=== PATIENT | male | born 1995 | race American Indian/Alaskan Native ===

== ENCOUNTER 2021-05-20 05:05 | Emergency (ER) | payer SELFPAY ==
--- NOTE | 2021-05-20 05:47 | Event Note ---
ED Screening Note ED Screening Note: 25-year-old Georgian male [facility] emerge department complaint planing of spontaneous AB abdominal pain that radiates from the mid gastric area down to the penile and testicular region of unknown etiology. Reports no loss of bowel bladder no saddle paresthesia, no hemoptysis no hematemesis no hematuria no feve r, chills, sweats pain is dull and throbbing worse with palpation and eating This initial assessment/diagnostic orders/clinical plan/treatment(s) is/are subject to change based on patients health status, clinical progression and re- assessment by fellow clinical providers in the ED. Further treatment and workup at subsequent clinical providers discretion. Patient/guardian urged not to elope from the ED as their condition may be serious if not clinically assessed and managed. Initial orders include: Plan obtain urinalysis, routine laboratory findings and reevaluate for the need for any imaging
[2021-05-20 06:10] LABS: Bilirubin,Urine NEG (Negative); Blood,Urine NEG (Negative); Color,Urine Straw (Yellow); Mucus,Urine FEW /HPF; Protein,Urine <15 mg/dL mg/dL (Negative); RBC,Urine < 1.0 /HPF (0.0-6.0); Urobilinogen,Urine < 2.0 mg/dL (<2.0); WBC,Urine < 1.0 /HPF (0.0-6.0)
[2021-05-20 06:18] LABS: Basophils % (Auto) 0.4 % (0.0-1.8); Eosinophils % (Auto) 0.3 % (0.0-4.3); Hematocrit 41.5 % (35.5-45.6); Hemoglobin 13.5 gm/dl (11.8-15.2); Lymphocytes # (Auto) 1.2 K/mm3 (1.2-5.4); Lymphocytes % (Auto) 21.8 % (13.4-35.0); Mean Corpuscular HGB Conc 33 % (32-34); Mean Corpuscular Volume 79 fl (84-94); Monocytes # (Auto) 0.4 K/mm3 (0.0-0.8); Monocytes % (Auto) 7.5 % (0.0-7.3); Platelet Count 282 K/mm3 (140-440); Red Blood Count 5.24 M/mm3 (3.65-5.03); Red Cell Distribution Width 12.5 % (13.2-15.2)
[2021-05-20 07:30] LABS: Alanine Aminotransferase 38 units/L (7-56); Albumin 4.5 g/dL (3.9-5); BUN/Creatinine Ratio 16; Blood Urea Nitrogen 14 mg/dL (9-20); Calcium 9.3 mg/dL (8.4-10.2); Hemolysis Index 3
[2021-05-20] MEDS ORDERED: traMADol 50 MG TAB PO ONE (09:22)
--- NOTE | 2021-05-20 09:23 | Emergency Department Report ---
ED General Adult HPI - General Chief complaint: Urogenital-Male Stated complaint: ABDOMINAL PAIN Time Seen by Provider: 05/20/21 09:03 Source: EMS Mode of arrival: Stretcher Limitations: No Limitations - History of Present Illness Initial comments: Patient presents with abdominal pain. He states that he was at a club. He was bending over and felt a sharp pop in his abdomen. He states that this was a sharp and stabbing pain that he felt in the abdomen. It is still present. It is worse with movement. He came here for evaluation and treatment because of the pain. The pain is diffusely located. He states that it seems to be coming from the lower abdomen. He also reported a feeling of stickiness on his left side. He states that it felt as though his skin was sticking on the left although there was nothing spilled on him. He decided to come here for evaluation and treatment. There is no trauma. He has no fevers or chills per there is no cough congestion. He has had no hematemesis or coffee-ground emesis. There is no melanotic stool. There is no dysuria or hematuria. - Related Data Previous Rx's Medication Instructions Recorded Last Taken Type Ibuprofen [Motrin] 600 mg PO Q8H PRN #30 tablet 05/20/21 Unknown Rx Metaxalone [Skelaxin] 800 mg PO TID #9 tablet 05/20/21 Unknown Rx Allergies Allergy/AdvReac Type Severity Reaction Status Date / Time No Known Allergies Allergy Verified 05/20/21 05:13 ED Review of Systems ROS: Stated complaint: ABDOMINAL PAIN Other details as noted in HPI Comment: All other systems reviewed and negative Constitutional: denies: fever Eyes: denies: eye pain ENT: denies: throat pain Respiratory: denies: cough Cardiovascular: denies: chest pain Endocrine: denies: unexplained weight loss Gastrointestinal: as per HPI Genitourinary: denies: dysuria Musculoskeletal: denies: back pain Skin: denies: rash Neurological: denies: headache Hematological/Lymphatic: denies: easy bruising ED Past Medical Hx - Past Medical History Previous Medical History?: No - Surgical History Past Surgical History?: No - Family History Family history: no significant - Social History Smoking Status: Unknown if ever smoked Substance Use Type: None - Medications Home Medications: Home Medications Medication Instructions Recorded Confirmed Last Taken Type Ibuprofen [Motrin] 600 mg PO Q8H PRN #30 tablet 05/20/21 Unknown Rx Metaxalone [Skelaxin] 800 mg PO TID #9 tablet 05/20/21 Unknown Rx ED Physical Exam - General Limitations: No Limitations, Other (Pulse ox noted and normal) General appearance: alert, in no apparent distress - Head Head exam: Present: atraumatic, normocephalic, normal inspection - Eye Eye exam: Present: normal appearance, EOMI. Absent: scleral icterus - ENT ENT exam: Present: normal exam, normal orophraynx, normal external ear exam - Neck Neck exam: Present: normal inspection. Absent: meningismus - Respiratory Respiratory exam: Present: normal lung sounds bilaterally. Absent: respiratory distress - Cardiovascular Cardiovascular Exam: Present: regular rate, normal rhythm - GI/Abdominal GI/Abdominal exam: Present: soft. Absent: distended, tenderness, guarding, rebound - Extremities Exam Extremities exam: Present: normal capillary refill - Back Exam Back exam: Absent: CVA tenderness (R), CVA tenderness (L) - Neurological Exam Neurological exam: Present: alert, oriented X3, CN II-XII intact, normal gait - Psychiatric Psychiatric exam: Present: normal affect, normal mood - Skin Skin exam: Present: warm, dry ED Course Vital Signs 05/20/21 05/20/21 05:15 09:56 Temperature 98 F Pulse Rate 86 Respiratory 16 16 Rate Blood Pressure 130/90 [Left] O2 Sat by Pulse 98 Oximetry - Reevaluation(s) Reevaluation #2: 05/20/21 09:23 Labs reviewed. X-rays ordered. Reevaluation #3: 05/20/21 10:26 Radiographs are noted. Labs were reviewed. Patient was discharged. Old records reviewed. ED Medical Decision Making - Lab Data Result diagrams: 05/20/21 05:56 05/20/21 05:56 - Radiology Data Radiology results: image reviewed - Medical Decision Making Patient presents with abdominal pain of unclear etiology. This was nontraumatic in nature. He certainly does not have peritoneal finding. Given his presentation of a sharp onset of abdominal pain, there is no evidence of peritonitis. He has no evidence of free air or perforation. He does not have evidence of acute hepatitis or pancreatitis. There is no right lower quadrant tenderness to suggest appendicitis. Patient has not had any urinary symptoms. He was given analgesics and referral for outpatient evaluation and follow-up. Critical Care Time: No Critical care attestation.: If time is entered above; I have spent that time in minutes in the direct care of this critically ill patient, excluding procedure time. ED Disposition Clinical Impression: Generalized abdominal pain Disposition: HOME / SELF CARE / HOMELESS Is pt being admited?: No Condition: Stable Instructions: Pain Without a Known Cause Additional Instructions: Try ice or heat for your pain. Drink plenty water. Return for problems. Follow-up with your regular doctor. If you do not have a regular doctor, follow-up with the referral physician. Take medication as needed. Prescriptions: Ibuprofen [Motrin] 600 mg PO Q8H PRN #30 tablet PRN Reason: Pain Metaxalone [Skelaxin] 800 mg PO TID #9 tablet Referrals: JERALD BOBBY MD [Primary Care Provider] - 3-5 Days OLIVA BOJORQUEZ MD [Staff Physician] - 3-5 Days
--- NOTE | 2021-05-20 10:30 | XRay Report ---
ABDOMEN SERIES WITH ONE VIEW CHEST INDICATION / CLINICAL INFORMATION: sharp pain. COMPARISON: None available. FINDINGS: TUBES / LINES: None. BOWEL GAS PATTERN: No significant abnormality. FREE AIR / EXTRALUMINAL GAS: None seen. ADDITIONAL FINDINGS: No significant additional findings. LUNGS: Visualized lungs show no significant abnormality. IMPRESSION: 1. No significant abnormality. Signer Name: Eugene Rea MD Signed: 05/20/2021 10:25 AM Workstation Name: [id number]
[2021-05-20 11:03] VITALS: BP 125/77
== END 2021-05-20 11:03 | disposition home or self-care (01) ==
LOC: ED 05:05
DX: R10.84 Generalized abdominal pain (principal)
CPT/HCPCS: 36415; 74022; 80053; 81001; 83690; 85025; 99284

== ENCOUNTER 2021-05-20 17:27 | Emergency (ER) | payer SELFPAY ==
[2021-05-20 17:35] VITALS: BP 111/62
[2021-05-20] MEDS ORDERED: LORazepam 1 MG TAB PO ONE (19:27)
--- NOTE | 2021-05-20 19:32 | Emergency Department Report ---
ED Anxiety HPI - General Chief Complaint: Anxiety Stated Complaint: anxiety Source: patient, EMS Mode of arrival: Ambulatory - History of Present Illness Initial Comments: Patient is a 25-year-old -[place]est[place] male with a history of anxiety and not on any medications who presents to the ED with complaint of acute exacerbation of his chronic recurrent anxiety symptoms characterized by chest tightness, heart racing, and tingling sensation in his face for the last 2 hours. Patient states that he was walking on the street going to pick his medication for dental abscess that he was diagnosed with recently when he started experiencing the symptoms. Patient denies fever, chills, dizziness, syncope, chest pain, shortness of breath, abdominal pain, nausea and vomiting or headache and cough. MD Complaint: anxiety, heart racing, other (chest tightness) -: Sudden, hour(s) (2) Symptoms: chest pain (tightness), palpitations Place: outdoors Previous History of Same: Yes (chronic anxiety, not on meds) Severity: moderate Quality: constant Provoking factors: recent /illness of f Improves With: nothing Worsens With: thinking about event Associated symptoms: palpitations, anorexia. denies: chest pain, shortness of breath, diaphoresis, denies other symptoms, confusion, cough, fever/chills, headaches, rash - Related Data Home Medications: Previous Rx's Medication Instructions Recorded Last Taken Type Ibuprofen [Motrin] 600 mg PO Q8H PRN #30 tablet 05/20/21 Unknown Rx Metaxalone [Skelaxin] 800 mg PO TID #9 tablet 05/20/21 Unknown Rx hydrOXYzine PAMOATE [Vistaril] 25 mg PO Q12HR PRN #30 capsule 05/20/21 Unknown Rx Allergies/Adverse Reactions: Allergies Allergy/AdvReac Type Severity Reaction Status Date / Time No Known Allergies Allergy Verified 05/20/21 05:13 ED Review of Systems ROS: Stated complaint: anxiety Other details as noted in HPI Constitutional: denies: chills, fever Eyes: denies: eye pain, eye discharge, vision change ENT: other (facial tingling). denies: ear pain, throat pain Respiratory: denies: cough, shortness of breath, wheezing Cardiovascular: chest pain (tightness), palpitations Endocrine: no symptoms reported Gastrointestinal: denies: abdominal pain, nausea, diarrhea Genitourinary: denies: urgency, dysuria Musculoskeletal: denies: back pain, joint swelling, arthralgia Skin: denies: rash, lesions Neurological: denies: headache, weakness, paresthesias Psychiatric: anxiety. denies: depression Hematological/Lymphatic: denies: easy bleeding, easy bruising ED Past Medical Hx - Past Medical History Hx Psychiatric Treatment: Yes (Anxiety) - Social History Smoking Status: Unknown if ever smoked Substance Use Type: None - Medications Home Medications: Home Medications Medication Instructions Recorded Confirmed Last Taken Type Ibuprofen [Motrin] 600 mg PO Q8H PRN #30 tablet 05/20/21 Unknown Rx Metaxalone [Skelaxin] 800 mg PO TID #9 tablet 05/20/21 Unknown Rx hydrOXYzine PAMOATE [Vistaril] 25 mg PO Q12HR PRN #30 capsule 05/20/21 Unknown Rx ED Physical Exam - General Limitations: No Limitations General appearance: alert, in no apparent distress - Head Head exam: Present: atraumatic, normocephalic, normal inspection - Eye Eye exam: Present: normal appearance, PERRL, EOMI Pupils: Present: normal accommodation - ENT ENT exam: Present: normal exam, mucous membranes moist. Absent: normal orophraynx, mucous membranes dry, TM's normal bilaterally, normal external ear exam - Neck Neck exam: Present: normal inspection, full ROM - Respiratory Respiratory exam: Present: normal lung sounds bilaterally. Absent: respiratory distress - Cardiovascular Cardiovascular Exam: Present: normal rhythm, bradycardia, normal heart sounds. Absent: systolic murmur, diastolic murmur, rubs, gallop - GI/Abdominal GI/Abdominal exam: Present: soft, normal bowel sounds. Absent: distended, tenderness, rebound, hyperactive bowel sounds, hypoactive bowel sounds, organomegaly - Extremities Exam Extremities exam: Present: normal inspection, full ROM, normal capillary refill - Back Exam Back exam: Present: normal inspection, full ROM. Absent: CVA tenderness (L), muscle spasm, paraspinal tenderness - Neurological Exam Neurological exam: Present: alert, oriented X3, CN II-XII intact, normal gait, reflexes normal - Psychiatric Psychiatric exam: Present: normal affect, normal mood, anxious - Skin Skin exam: Present: warm, dry, intact, normal color. Absent: rash ED Course Vital Signs 05/20/21 17:34 Temperature 98.5 F Pulse Rate 57 L Respiratory 14 Rate Blood Pressure 111/62 [Left] O2 Sat by Pulse 100 Oximetry ED Medical Decision Making - EKG Data EKG shows normal: sinus rhythm Rate: normal - EKG Data Interpretation: normal EKG - Medical Decision Making This is a 25-year-old -[place] male with a history of anxiety and not on any medications who presents to the ED with complaint of acute exacerbation of his chronic recurrent anxiety symptoms characterized by chest tightness, heart racing, and tingling sensation in his face for the last 2 hours. Patient states that he was walking on the street going to pick his medication for dental abscess that he was diagnosed with recently when he started experiencing the symptoms. In the ED, patient is alert and oriented x3 and is not in any distress. Patient is hemodynamically stable. Patient heart score is 0 and is PERC negative per Wells criteria. Patient was treated in the ED with anxiety medication, and discharged home on medications. Patient was advised to follow- up with his primary care physician in 5 to 7 days for reevaluation. Patient is advised return to the ED immediately if symptoms get worse. - Differential Diagnosis Anxiety; panic attack Critical care attestation.: If time is entered above; I have spent that time in minutes in the direct care of this critically ill patient, excluding procedure time. ED Disposition Clinical Impression: Anxiety as acute reaction to exceptional stress Disposition: 01 HOME / SELF CARE / HOMELESS Is pt being admited?: No Does the pt Need Aspirin: No Condition: Stable Instructions: Generalized Anxiety Disorder, Adult Additional Instructions: Take medication with food, drink plenty of fluids and follow-up with your primary care physician in 7 to 10 days for reevaluation. Return to the ED immediately if symptoms get worse. Prescriptions: hydrOXYzine PAMOATE [Vistaril] 25 mg PO Q12HR PRN #30 capsule PRN Reason: Anxiety Referrals: [facility] [Provider Group] - 7-10 days Time of Disposition: 19:36 Print Language: DIVEHI
--- NOTE | 2021-05-22 08:40 | Electrocardiograph Report ---
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
== END 2021-05-21 01:32 | disposition home or self-care (01) ==
LOC: ED 17:27
DX: F41.9 Anxiety disorder, unspecified (principal); R00.2 Palpitations; R63.0 Anorexia
CPT/HCPCS: 93005; 99283

== ENCOUNTER 2021-05-21 18:41 | Emergency (ER) | payer SELFPAY ==
[2021-05-21] MEDS ORDERED: KETOROLAC 30 MG/1 ML INJ IM ONE (20:35)
--- NOTE | 2021-05-21 20:41 | Emergency Department Report ---
HPI - General Chief Complaint: Pain General Time Seen by Provider: 05/21/21 20:34 - HPI HPI: This is a 25-year-old -Turkish male presents to the emergency department with a complaint of some pain to the left side of his neck that radiates up into the face and left side of his head. This started about 1 hour prior to presentation. The patient says that he just started taking some amoxicillin today for a dental infection that was prescribed to him by an urgent care. He denies any vision change, slurred speech, numbness or paresthesias, focal or lateralizing weakness. He has not taken anything for symptoms prior to presentation today. ED Past Medical Hx - Past Medical History Hx Psychiatric Treatment: Yes (Anxiety) - Social History Smoking Status: Unknown if ever smoked Substance Use Type: None - Medications Home Medications: Home Medications Medication Instructions Recorded Confirmed Last Taken Type Ibuprofen [Motrin] 600 mg PO Q8H PRN #30 tablet 05/20/21 Unknown Rx Metaxalone [Skelaxin] 800 mg PO TID #9 tablet 05/20/21 Unknown Rx hydrOXYzine PAMOATE [Vistaril] 25 mg PO Q12HR PRN #30 capsule 05/20/21 Unknown Rx ED Review of Systems ROS: Stated complaint: NECK PAIN Other details as noted in HPI Comment: All other systems reviewed and negative Constitutional: denies: chills, fever Eyes: denies: eye pain, vision change ENT: dental pain. denies: throat pain Respiratory: denies: cough, shortness of breath Cardiovascular: denies: chest pain, palpitations Gastrointestinal: denies: abdominal pain, vomiting Genitourinary: denies: dysuria, discharge Musculoskeletal: other (Left-sided neck pain). denies: back pain Skin: denies: rash, lesions Neurological: headache. denies: weakness, numbness, paresthesias, confusion Physical Exam - Physical Exam Vital Signs: Vital Signs 05/21/21 18:43 Temperature 98.3 F Pulse Rate 72 Respiratory 16 Rate Blood Pressure 120/83 [Left] O2 Sat by Pulse 98 Oximetry Physical Exam: GENERAL: The patient is well-developed well-nourished. HENT: Normocephalic. Atraumatic. Patient has moist mucous membranes. Oropharynx is clear without tonsillar hypertrophy, erythema or exudates. Poor dentition. No drooling or trismus. EYES: Extraocular motions are intact. NECK: Supple. Trachea is midline. There is some reproducible tenderness to palpation to the left lateral neck, but no obvious deformity. No carotid bruit auscultated. No palpable lymphadenopathy. CHEST/LUNGS: Clear to auscultation. There is no respiratory distress noted. HEART/CARDIOVASCULAR: Regular. There is no tachycardia. There is no murmur. ABDOMEN: Abdomen is soft, nontender. Patient has normal bowel sounds. SKIN: Skin is warm and dry. NEURO: The patient is awake, alert, and oriented. The patient is cooperative. The patient has no focal neurologic deficits. Normal speech. MUSCULOSKELETAL: There is no tenderness or deformity. There is no limitation range of motion. ED Course Vital Signs 05/21/21 18:43 Temperature 98.3 F Pulse Rate 72 Respiratory 16 Rate Blood Pressure 120/83 [Left] O2 Sat by Pulse 98 Oximetry ED Medical Decision Making - Lab Data Result diagrams: 05/21/21 20:39 05/21/21 20:39 Lab Results 05/21/21 05/21/21 Range/Units 20:39 20:39 WBC 5.4 (4.5-11.0) K/mm3 RBC 5.82 H (3.65-5.03) M/mm3 Hgb 15.1 (11.8-15.2) gm/dl Hct 46.9 H (35.5-45.6) % MCV 81 L (84-94) fl MCH 26 L (28-32) pg MCHC 32 (32-34) % RDW 12.9 L (13.2-15.2) % Plt Count 313 (140-440) K/mm3 Lymph % (Auto) 31.2 (13.4-35.0) % [place] % (Auto) 7.4 H (0.0-7.3) % Eos % (Auto) 1.0 (0.0-4.3) % Baso % (Auto) 0.7 (0.0-1.8) % Lymph # (Auto) 1.7 (1.2-5.4) K/mm3 [place] # (Auto) 0.4 (0.0-0.8) K/mm3 Eos # (Auto) 0.1 (0.0-0.4) K/mm3 Baso # (Auto) 0.0 (0.0-0.1) K/mm3 Seg Neutrophils % 59.7 (40.0-70.0) % Seg Neutrophils # 3.3 (1.8-7.7) K/mm3 Sodium 139 (137-145) mmol/L Potassium 3.8 (3.6-5.0) mmol/L Chloride 102.6 (98-107) mmol/L Carbon Dioxide 23 (22-30) mmol/L Anion Gap 17 mmol/L BUN 16 (9-20) mg/dL Creatinine 1.0 (0.8-1.3) mg/dL Estimated GFR > 60 ml/min BUN/Creatinine Ratio 16 % Glucose 115 H (75-100) mg/dL Calcium 9.8 (8.4-10.2) mg/dL - Medical Decision Making This patient came in saying that he was having sharp left neck pain with radiation towards the left side of his face and head after taking his first dose of amoxicillin earlier in the evening. On examination there is no obvious deformity seen to the left side of the neck. He does not have any focal, motor or sensory deficits and his cranial nerves are intact. No palpable lymphadenopathy. No drooling or trismus. No carotid bruits auscultated. Labs were unremarkable occluding CBC and metabolic panel. Vital signs reassuring including being afebrile. It is possible that he could have had some type of reaction to the amoxicillin. He could have some type of neuropathic pain along the neck, face, head. But he does not appear to have any life or thin threatening emergency or any reason for a medical admission at this time. We discussed discontinuing the amoxicillin and following up with primary care and dentist regarding an antibiotic alternative, if necessary. He will return to the emergency department with any worsening of his symptoms, difficulty swallowing, difficulty breathing, swelling of the neck, any new neurological deficits, or with any acute distress. Critical Care Time: No Critical care attestation.: If time is entered above; I have spent that time in minutes in the direct care of this critically ill patient, excluding procedure time. ED Disposition Clinical Impression: Neck pain on left side, Facial pain, Pain, dental Disposition: 01 HOME / SELF CARE / HOMELESS Is pt being admited?: No Condition: Stable Instructions: General Headache Without Cause, Acute Pain, Adult Additional Instructions: Please follow-up with your primary care physician and dentist. As it is possible that you had a reaction to the amoxicillin, I would stop/discontinue the amoxicillin and contact your PCP or dentist for an alternative antibiotic. Return to the emergency department with any worsening of your symptoms, new or concerning symptoms not addressed during this current emergency department visit, or with any acute distress. Referrals: PRIMARY CARE, [Primary Care Provider] - 2-3 Days Time of Disposition: 21:55
[2021-05-21 20:52] LABS: Basophils % (Auto) 0.7 % (0.0-1.8); Eosinophils # (Auto) 0.1 K/mm3 (0.0-0.4); Hematocrit 46.9 % (35.5-45.6); Hemoglobin 15.1 gm/dl (11.8-15.2); Lymphocytes # (Auto) 1.7 K/mm3 (1.2-5.4); Lymphocytes % (Auto) 31.2 % (13.4-35.0); Mean Corpuscular HGB Conc 32 % (32-34); Mean Corpuscular Volume 81 fl (84-94); Monocytes # (Auto) 0.4 K/mm3 (0.0-0.8); Monocytes % (Auto) 7.4 % (0.0-7.3); Platelet Count 313 K/mm3 (140-440); Red Blood Count 5.82 M/mm3 (3.65-5.03); Red Cell Distribution Width 12.9 % (13.2-15.2)
[2021-05-21 21:10] LABS: BUN/Creatinine Ratio 16; Blood Urea Nitrogen 16 mg/dL (9-20); Calcium 9.8 mg/dL (8.4-10.2); Hemolysis Index 13
[2021-05-21 22:20] VITALS: BP 123/79
== END 2021-05-21 22:13 | disposition home or self-care (01) ==
LOC: ED 18:41
DX: M54.2 Cervicalgia (principal); G50.1 Atypical facial pain; K08.89 Other specified disorders of teeth and supporting structures; Z86.59 Personal history of other mental and behavioral disorders
CPT/HCPCS: 36415; 80048; 85025; 96372; 99283; J1885

== ENCOUNTER 2021-05-26 14:14 | Emergency (ER) | payer SELFPAY ==
[2021-05-26 14:20] VITALS: BP 115/75
== END 2021-05-26 14:30 | disposition left against medical advice (07) ==
LOC: ED 14:14
DX: Z00.00 Encounter for general adult medical examination without abnormal findings (principal); Z53.21 Procedure and treatment not carried out due to patient leaving prior to being seen by health care provider

== ENCOUNTER 2021-05-26 17:47 | Emergency (ER) | payer SELFPAY ==
[2021-05-26 17:52] VITALS: BP 112/64
--- NOTE | 2021-05-26 19:08 | Emergency Department Report ---
HPI - General Chief Complaint: Dizziness Time Seen by Provider: 05/26/21 18:37 - HPI HPI: 25-year-old -[place] male presents to the emergency department with complaint of some dizziness, generalized weakness, asymmetric temperature sensations that have been going on since this morning. The patient starts off by telling me that he feels like there is a pulling sensation in the right side of his head. He also says that the left side of his face, as well as the left side of his body and extremities, feels like it is heating up and is at a dif ferent temperature than the right side of his body and face. When EMS came to get him from home the patient says he felt as if he was slightly unsteady. He denies any vision change, slurred speech, focal or lateralizing weakness, chest pain, shortness of breath, fever, neck pain. He has not taken anything for symptoms prior to presentation. No past medical history. He denies any tobacco or illicit drug use. ED Past Medical Hx - Past Medical History Hx Psychiatric Treatment: Yes (Anxiety) - Social History Smoking Status: Unknown if ever smoked Substance Use Type: None - Medications Home Medications: Home Medications Medication Instructions Recorded Confirmed Last Taken Type Ibuprofen [Motrin] 600 mg PO Q8H PRN #30 tablet 05/20/21 Unknown Rx Metaxalone [Skelaxin] 800 mg PO TID #9 tablet 05/20/21 Unknown Rx hydrOXYzine PAMOATE [Vistaril] 25 mg PO Q12HR PRN #30 capsule 05/20/21 Unknown Rx ED Review of Systems ROS: Stated complaint: DIZZINESS Other details as noted in HPI Comment: All other systems reviewed and negative Constitutional: weakness. denies: chills, fever Eyes: denies: eye pain, vision change ENT: denies: ear pain, throat pain Respiratory: denies: cough, shortness of breath Cardiovascular: denies: chest pain, palpitations Gastrointestinal: denies: abdominal pain, vomiting Genitourinary: denies: dysuria, discharge Musculoskeletal: denies: back pain, arthralgia Skin: denies: rash, lesions Neurological: headache, other (dizziness). denies: numbness Physical Exam - Physical Exam Vital Signs: Vital Signs 05/26/21 17:49 Temperature 98.9 F Pulse Rate 82 Respiratory 16 Rate Blood Pressure 112/64 [Right] O2 Sat by Pulse 98 Oximetry Physical Exam: GENERAL: The patient is well-developed well-nourished. HENT: Normocephalic. Atraumatic. Patient has moist mucous membranes. EYES: Extraocular motions are intact. No nystagmus. NECK: Supple. Trachea is midline. CHEST/LUNGS: Clear to auscultation. There is no respiratory distress noted. HEART/CARDIOVASCULAR: Regular. There is no tachycardia. There is no murmur. ABDOMEN: Abdomen is soft, nontender. Patient has normal bowel sounds. SKIN: Skin is warm and dry. NEURO: The patient is awake, alert, and oriented. The patient is cooperative. The patient has no focal neurologic deficits. Normal speech. Cranial nerves II through XII grossly intact. No facial asymmetry. No pronator drift or dysmetria. MUSCULOSKELETAL: There is no tenderness or deformity. There is no limitation range of motion. ED Course Vital Signs 05/26/21 17:49 Temperature 98.9 F Pulse Rate 82 Respiratory 16 Rate Blood Pressure 112/64 [Right] O2 Sat by Pulse 98 Oximetry ED Medical Decision Making - Lab Data Result diagrams: 05/26/21 19:08 05/26/21 19:08 Lab Results 05/26/21 05/26/21 05/26/21 Range/Units 19:08 19:08 19:08 WBC 3.9 L (4.5-11.0) K/mm3 RBC 5.48 H (3.65-5.03) M/mm3 Hgb 14.6 (11.8-15.2) gm/dl Hct 43.6 (35.5-45.6) % MCV 80 L (84-94) fl MCH 27 L (28-32) pg MCHC 34 (32-34) % RDW 12.4 L (13.2-15.2) % Plt Count 308 (140-440) K/mm3 Lymph % (Auto) 35.7 H (13.4-35.0) % [place] % (Auto) 8.4 H (0.0-7.3) % Eos % (Auto) 0.7 (0.0-4.3) % Baso % (Auto) 0.9 (0.0-1.8) % Lymph # (Auto) 1.4 (1.2-5.4) K/mm3 [place] # (Auto) 0.3 (0.0-0.8) K/mm3 Eos # (Auto) 0.0 (0.0-0.4) K/mm3 Baso # (Auto) 0.0 (0.0-0.1) K/mm3 Seg Neutrophils % 54.3 (40.0-70.0) % Seg Neutrophils # 2.1 (1.8-7.7) K/mm3 Sodium 139 (137-145) mmol/L Potassium 4.0 (3.6-5.0) mmol/L Chloride 103.1 (98-107) mmol/L Carbon Dioxide 24 (22-30) mmol/L Anion Gap 16 mmol/L BUN 18 (9-20) mg/dL Creatinine 1.0 (0.8-1.3) mg/dL Estimated GFR > 60 ml/min BUN/Creatinine Ratio 18 % Glucose 88 (75-100) mg/dL Calcium 9.4 (8.4-10.2) mg/dL Total Bilirubin 0.30 (0.1-1.2) mg/dL AST 20 (5-40) units/L ALT 23 (7-56) units/L Alkaline Phosphatase 66 (35-129) units/L Total Protein 7.8 (6.3-8.2) g/dL Albumin 4.3 (3.9-5) g/dL Albumin/Globulin Ratio 1.2 % TSH 0.446 (0.270-4.200) mlU/mL - EKG Data -: EKG Interpreted by [place] EKG shows normal: sinus rhythm (PACs), axis, intervals, QRS complexes, ST-T waves Rate: normal - EKG Data When compared to previous EKG there are: previous EKG unavailable Interpretation: normal EKG, unchanged when compared t (05/10/21) - Radiology Data Radiology results: report reviewed CT BRAIN: 05/26/2021 INDICATION / CLINICAL INFORMATION: dizziness, weakness. COMPARISON: None available. FINDINGS: BRAIN/INTRACRANIAL STRUCTURES: Unenhanced CT images of the brain demonstrate no evidence of acute abnormality. Ventricles and sulci are normal in size and shape. There is no evidence of acute ischemic injury, hemorrhage, or mass. There are no abnormal extra- axial fluid collections. EXTRACRANIAL STRUCTURES: Unremarkable. IMPRESSION: No acute abnormality. - Medical Decision Making This patient presents to the emergency department with a complaint of a "pulling sensation" to the right side of his head, subjective change in temperature or sensation to the left side of his body, and some nonspecific dizziness. On examination he does not have any focal, motor or sensory deficits and his cranial nerves are intact. CT of the head without contrast does not show any hemorrhage, large vessel occlusion, or any other acute process. EKG does not show any morphology consistent with ST elevation myocardial infarction or any arrhythmia. Labs have been unremarkable including CBC, metabolic panel and normal thyroid function. Vital signs reassuring throughout his ED course including being afebrile. The patient was seen ambulatory in the emergency department but appears and feels stable. For all these reasons he appears safe for discharge home at this time. He has been given outpatient referral for primary care and will return to the ER with any worsening of his symptoms or with any acute distress. Critical Care Time: No Critical care attestation.: If time is entered above; I have spent that time in minutes in the direct care of this critically ill patient, excluding procedure time. ED Disposition Clinical Impression: Dizziness, Alterations of sensations Disposition: 01 HOME / SELF CARE / HOMELESS Is pt being admited?: No Condition: Stable Instructions: Dizziness Additional Instructions: Please follow-up with a primary care physician in the next few days. I have given you a referral for a local primary care physician, Dr. Lawson, and a primary care clinic, [facility]. Return to the emergency department with any worsening of your symptoms, new or concerning symptoms not addressed during this current emergency department visit, or with any acute distress. Referrals: OLIVA LAWSON MD [Staff Physician] - 3-5 Days [facility] [Provider Group] - 3-5 Days Forms: Work/School Release Form(ED) Time of Disposition: 21:17
[2021-05-26 19:22] LABS: Basophils % (Auto) 0.9 % (0.0-1.8); Eosinophils % (Auto) 0.7 % (0.0-4.3); Hematocrit 43.6 % (35.5-45.6); Hemoglobin 14.6 gm/dl (11.8-15.2); Lymphocytes # (Auto) 1.4 K/mm3 (1.2-5.4); Lymphocytes % (Auto) 35.7 % (13.4-35.0); Mean Corpuscular HGB Conc 34 % (32-34); Mean Corpuscular Volume 80 fl (84-94); Monocytes # (Auto) 0.3 K/mm3 (0.0-0.8); Monocytes % (Auto) 8.4 % (0.0-7.3); Platelet Count 308 K/mm3 (140-440); Red Blood Count 5.48 M/mm3 (3.65-5.03); Red Cell Distribution Width 12.4 % (13.2-15.2)
[2021-05-26 19:45] LABS: Alanine Aminotransferase 23 units/L (7-56); Albumin 4.3 g/dL (3.9-5); BUN/Creatinine Ratio 18; Blood Urea Nitrogen 18 mg/dL (9-20); Calcium 9.4 mg/dL (8.4-10.2); Hemolysis Index 8
--- NOTE | 2021-05-26 19:57 | Cat Scan Report ---
CT BRAIN: 05/26/2021 INDICATION / CLINICAL INFORMATION: dizziness, weakness. COMPARISON: None available. FINDINGS: BRAIN/INTRACRANIAL STRUCTURES: Unenhanced CT images of the brain demonstrate no evidence of acute abn ormality. Ventricles and sulci are normal in size and shape. There is no evidence of acute ischemic injury, hemorrhage, or mass. There are no abnormal extra-axial fluid collections. EXTRACRANIAL STRUCTURES: Unremarkable. IMPRESSION: No acute abnormality. All CT scans at this location are performed using dose reduction to ALARA by means of automated expos ure control. Signer Name: Higinio Wilkins MD Signed: 05/26/2021 7:53 PM Workstation Name: [id number]
--- NOTE | 2021-05-27 08:58 | Electrocardiograph Report ---
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
== END 2021-05-26 21:24 | disposition home or self-care (01) ==
LOC: ED 17:47
DX: R42 Dizziness and giddiness (principal); R53.1 Weakness; R20.9 Unspecified disturbances of skin sensation; F41.9 Anxiety disorder, unspecified
CPT/HCPCS: 36415; 70450; 80053; 84443; 85025; 93005; 99284

== ENCOUNTER 2021-08-13 18:18 | Emergency (ER) | payer SELFPAY ==
--- NOTE | 2021-08-13 23:37 | Emergency Department Report ---
HPI - General Chief Complaint: Dyspnea/Respdistress Time Seen by Provider: 08/13/21 23:19 - HPI HPI: MSE 6 Patient is a 26-year-old male present with a chief complaint of tinnitus and dizziness. The patient states he awakened this morning with ringing in both ears even really dizzy his shortness of breath. Patient states those symptoms are resolved with exception of slight shortness of breath. Patient denies history of fever or recent flights/long car trips. Patient denies aspirin use. Patient states for 1 day the pain in his left upper back and had a funny feeling in his right lower extremity. ED Past Medical Hx - Past Medical History Previous Medical History?: Yes Hx Psychiatric Treatment: Yes (Anxiety) - Surgical History Past Surgical History?: Yes - Family History Family history: no significant - Social History Smoking Status: Never Smoker Substance Use Type: None (Denies illicit drug use) - Medications Home Medications: Home Medications Medication Instructions Recorded Confirmed Last Taken Type Ibuprofen [Motrin] 600 mg PO Q8H PRN #30 tablet 05/20/21 Unknown Rx Metaxalone [Skelaxin] 800 mg PO TID #9 tablet 05/20/21 Unknown Rx hydrOXYzine PAMOATE [Vistaril] 25 mg PO Q12HR PRN #30 capsule 05/20/21 Unknown Rx Albuterol Mdi (or & Nicu Only) 2 puff IH QID PRN #8.5 gram 08/14/21 Unknown Rx [ProAir HFA Inhaler] Meclizine [Antivert] 25 mg PO TID PRN #20 08/14/21 Unknown Rx ED Review of Systems ROS: Stated complaint: SOB,EAR RINGING Other details as noted in HPI Constitutional: denies: fever Eyes: denies: eye pain ENT: other (Tinnitus) Respiratory: shortness of breath Cardiovascular: denies: chest pain Endocrine: no symptoms reported Gastrointestinal: denies: abdominal pain Genitourinary: denies: dysuria Musculoskeletal: back pain Neurological: other (Dizziness) Physical Exam - Physical Exam Vital Signs: Vital Signs 08/13/21 18:24 Temperature 98.0 F Pulse Rate 60 Respiratory 18 Rate Blood Pressure 106/60 O2 Sat by Pulse 99 Oximetry Physical Exam: GENERAL: The patient is well-developed well-nourished male sitting in chair not appearing to be in acute distress. [] HEENT: Normocephalic. Atraumatic. Extraocular motions are intact. Patient has moist mucous membranes. No nystagmus NECK: Supple. Trachea midline CHEST/LUNGS: Clear to auscultation. There is no respiratory distress noted. HEART/CARDIOVASCULAR: Regular. There is no tachycardia. There is no gallop rub or murmur. ABDOMEN: Abdomen is soft, nontender. Patient has normal bowel sounds. There is no abdominal distention. SKIN: There is no rash. There is no edema. There is no diaphoresis. NEURO: The patient is awake, alert, and oriented. The patient is cooperative. The patient has no focal neurologic deficits. The patient has normal speech. Cranial nerves II through XII grossly intact MUSCULOSKELETAL: There is no evidence of acute injury. ED Course Vital Signs 08/13/21 18:24 Temperature 98.0 F Pulse Rate 60 Respiratory 18 Rate Blood Pressure 106/60 O2 Sat by Pulse 99 Oximetry ED Medical Decision Making - Lab Data Result diagrams: 08/14/21 00:04 08/14/21 00:04 Laboratory Tests 08/14/21 08/14/21 08/14/21 00:04 00:04 00:04 WBC 3.5 L RBC 5.54 H Hgb 14.2 Hct 44.7 MCV 81 L MCH 26 L MCHC 32 RDW 14.0 Plt Count 325 Lymph % (Auto) 45.3 H [place] % (Auto) 10.9 H Eos % (Auto) 1.6 Baso % (Auto) 0.9 Lymph # (Auto) 1.6 [place] # (Auto) 0.4 Eos # (Auto) 0.1 Baso # (Auto) 0.0 Seg Neutrophils % 41.3 Seg Neutrophils # 1.5 L D-Dimer < 135.0 Sodium 142 Potassium 4.3 Chloride 105.9 Carbon Dioxide 24 Anion Gap 16 BUN 14 Creatinine 0.8 Estimated GFR > 60 BUN/Creatinine Ratio 18 Glucose 93 Calcium 9.0 Total Creatine Kinase 564 H CK-MB (CK-2) 5.7 H CK-MB (CK-2) Rel Index 1.0 Troponin T < 0.010 NT-Pro-B Natriuret Pep 14.58 TSH Free T4 Salicylates 08/14/21 08/14/21 00:04 00:04 WBC RBC Hgb Hct MCV MCH MCHC RDW Plt Count Lymph % (Auto) [place] % (Auto) Eos % (Auto) Baso % (Auto) Lymph # (Auto) [place] # (Auto) Eos # (Auto) Baso # (Auto) Seg Neutrophils % Seg Neutrophils # D-Dimer Sodium Potassium Chloride Carbon Dioxide Anion Gap BUN Creatinine Estimated GFR BUN/Creatinine Ratio Glucose Calcium Total Creatine Kinase CK-MB (CK-2) CK-MB (CK-2) Rel Index Troponin T NT-Pro-B Natriuret Pep TSH 0.707 Free T4 1.02 Salicylates < 0.3 L - EKG Data -: EKG Interpreted by Me EKG shows normal: sinus rhythm Rate: bradycardia (49 bpm) - EKG Data When compared to previous EKG there are: previous EKG unavailable Interpretation: other (No ischemic changes seen) - Radiology Data Radiology results: report reviewed (CT head), image reviewed (CT head, chest x- ray) interpreted by me: Chest x-ray-no definite focal infiltrates, [place] [address] Cat Scan Report Signed Patient: CAITLIN BARONE MR#: [id number] : 1995 Acct:[id number] Age/Sex: 26 / M ADM Date: 08/13/21 Loc: ED Attending Dr: Ordering Physician: MARCOS ROMEO MD Date of Service: 08/13/21 Procedure(s): CT head/brain wo con Accession Number(s): [id number] cc: MARCOS ROMEO MD CT HEAD WITHOUT CONTRAST INDICATION / CLINICAL INFORMATION: Tinnitus, dizziness. TECHNIQUE: CT of the head was performed without administration of intravenous co ntrast. All CT scans at this location are performed using CT dose reduction for ALARA by means of automated exposure control. COMPARISON: None available. FINDINGS: CEREBRAL PARENCHYMA: No significant abnormality. No acute territorial infarct. HEMORRHAGE: None. EXTRA-AXIAL SPACES: Normal in size and morphology for the patient's age. VENTRICULAR SYSTEM: Normal in size and morphology for the patient's age. MIDLINE SHIFT / HERNIATION: None. CEREBELLUM / BRAINSTEM: No significant abnormality. ORBITS: Normal as visualized. SOFT TISSUES: No significant abnormality. SKULL: No significant abnormality. PARANASAL SINUSES / MASTOID AIR CELLS: Normal as visualized. ADDITIONAL FINDINGS: No specific abnorm ality of the bilateral internal auditory canals or middle ear cavities. Vertebral basilar confluence appears within normal limits for noncontrast study. IMPRESSION: 1. No acute intracranial abnormality. Signer Name: Musa Kraft II, MD Signed: 08/13/2021 11:57 PM Workstation Name: [id number] Transcribed By: POONAM Dictated By: MUSA KRAFT II, MD Electronically Authenticated By: MUSA KRAFT II, MD Signed Date/Time: 08/13/212356 DD/ 55 TD/TT: Print Cancel - Differential Diagnosis Anxiety, PE, salicylate toxicity, Critical care attestation.: If time is entered above; I have spent that time in minutes in the direct care of this critically ill patient, excluding procedure time. ED Disposition Clinical Impression: Dizziness Disposition: 01 HOME / SELF CARE / HOMELESS Is pt being admited?: No Does the pt Need Aspirin: No Condition: Stable Instructions: Dizziness, [id number] Additional Instructions: Return to the emergency department should you develop worsening symptoms, inability to tolerate food or liquids, high fever or any other concerns Prescriptions: Meclizine [Antivert] 25 mg PO TID PRN #20 PRN Reason: Vertigo Albuterol Mdi (or & Nicu Only) [ProAir HFA Inhaler] 2 puff IH QID PRN #8.5 gram PRN Reason: Shortness Of Breath Referrals: NILA SILVERMAN MD [Staff Physician] - 3-5 Days JÚNIOR BENTLEY MD [Staff Physician] - 3-5 Days Time of Disposition: 03:59
--- NOTE | 2021-08-14 00:02 | Cat Scan Report ---
CT HEAD WITHOUT CONTRAST INDICATION / CLINICAL INFORMATION: Tinnitus, dizziness. TECHNIQUE: CT of the head was performed without administration of intravenous contrast. All CT scans at this location are performed using CT dose reduction for ALARA by means of automated exposure contr ol. COMPARISON: None available. FINDINGS: CEREBRAL PARENCHYMA: No significant abnormality. No acute territorial infarct. HEMORRHAGE: None. EXTRA-AXIAL SPACES: Normal in size and morphology for the patient's age. VENTRICULAR SYSTEM: Normal in size and morphology for the patient's age. MIDLINE SHIFT / HERNIATION: None. CEREBELLUM / BRAINSTEM: No significant abnormality. ORBITS: Normal as visualized. SOFT TISSUES: No significant abnormality. SKULL: No significant abnormality. PARANASAL SINUSES / MASTOID AIR CELLS: Normal as visualized. ADDITIONAL FINDINGS: No specific abnormality of the bilateral internal auditory canals or middle ear cavities. Vertebral basilar confluence appears within normal limits for noncontrast study. IMPRESSION: 1. No acute intracranial abnormality. Signer Name: Aiden Neal II, MD Signed: 08/13/2021 11:57 PM Workstation Name: [id number]
[2021-08-14 00:57] LABS: Basophils % (Auto) 0.9 % (0.0-1.8); Eosinophils # (Auto) 0.1 K/mm3 (0.0-0.4); Eosinophils % (Auto) 1.6 % (0.0-4.3); Hematocrit 44.7 % (35.5-45.6); Hemoglobin 14.2 gm/dl (11.8-15.2); Lymphocytes # (Auto) 1.6 K/mm3 (1.2-5.4); Lymphocytes % (Auto) 45.3 % (13.4-35.0); Mean Corpuscular HGB Conc 32 % (32-34); Mean Corpuscular Volume 81 fl (84-94); Monocytes # (Auto) 0.4 K/mm3 (0.0-0.8); Monocytes % (Auto) 10.9 % (0.0-7.3); Platelet Count 325 K/mm3 (140-440); Red Blood Count 5.54 M/mm3 (3.65-5.03)
[2021-08-14 01:01] LABS: Creatine Kinase MB 5.7 ng/mL (0.0-4.0)
[2021-08-14 01:03] LABS: BUN/Creatinine Ratio 18; Blood Urea Nitrogen 14 mg/dL (9-20); Hemolysis Index 5
[2021-08-14 01:12] LABS: Free T4 (Free Thyroxine) 1.02 ng/dL (0.76-1.46)
--- NOTE | 2021-08-14 04:12 | XRay Report ---
CHEST 2 VIEWS INDICATION / CLINICAL INFORMATION: Shortness of breath. COMPARISON: Chest x-ray 05/20/2021 FINDINGS: SUPPORT DEVICES: None. HEART / MEDIASTINUM: No significant abnormality. LUNGS / PLEURA: No significant pulmonary or pleural abnormality. No pneumothorax. ADDITIONAL FINDINGS: No significant additional findings. IMPRESSION: 1. No active cardiopulmonary disease. Signer Name: Aiden Neal II, MD Signed: 08/14/2021 4:08 AM Workstation Name: [id number]
[2021-08-14 04:13] VITALS: BP 117/76
--- NOTE | 2021-08-14 10:01 | Electrocardiograph Report ---
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
== END 2021-08-14 04:18 | disposition home or self-care (01) ==
LOC: ED 18:18
DX: R42 Dizziness and giddiness (principal)
CPT/HCPCS: 36415; 70450; 71046; 80048; 80320; 82550; 82553; 83880; 84439; 84443; 84484; 85025; 85379; 93005; 93010; 99284; G0480

== ENCOUNTER 2021-10-13 04:51 | Emergency (ER) | payer SELFPAY ==
[2021-10-13] MEDS ORDERED: ACETAMINOPHEN 500 MG TAB PO ONE (05:26)
[2021-10-13] MEDS ORDERED: ONDANSETRON 4 MG ODT TAB PO ONE (05:26)
--- NOTE | 2021-10-13 05:26 | Emergency Department Report ---
ED General Adult HPI - General Stated complaint: LT SIDE OF FACE LOCKED UP PUI?: No - History of Present Illness Initial comments: Patient is a 26-year-old -[place] male with a history of anxiety presents to the ED with complaint of acute onset persistent left maxillary sinus pain with nausea and blood in the saliva for the last 2 hours. 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 Patient stated that the pain was sharp and constant and subsequently he started tasting blood in his throat and started having nausea. Patient states that the pain is since improved but is still persistent however the patient denies traumatic injury, headache, dizziness, syncope, nasal and sinus congestion, change in vision, neck pain, sore throat, ear pain, fever and chills or nosebleed MD Complaint: Let maxillary sinus pain; nausea -: Sudden, hour(s) (2) Location: face, mouth Radiation: non-radiation Severity scale (0 -10): 4 Quality: aching, sharp Consistency: constant Improves with: none Worsens with: none Associated Symptoms: denies other symptoms. denies: confusion, chest pain, cough, diaphoresis, fever/chills, headaches, loss of appetite, malaise, nausea/vomiting, rash, seizure, shortness of breath, syncope, weakness Treatments Prior to Arrival: none - Related Data Previous Rx's Medication Instructions Recorded Last Taken Type Ibuprofen [Motrin] 600 mg PO Q8H PRN #30 tablet 05/20/21 Unknown Rx Metaxalone [Skelaxin] 800 mg PO TID #9 tablet 05/20/21 Unknown Rx hydrOXYzine PAMOATE [Vistaril] 25 mg PO Q12HR PRN #30 capsule 05/20/21 Unknown Rx Albuterol Mdi (or & Nicu Only) 2 puff IH QID PRN #8.5 gram 08/14/21 Unknown Rx [ProAir HFA Inhaler] Meclizine [Antivert] 25 mg PO TID PRN #20 08/14/21 Unknown Rx Amoxicillin [Trimox CAP] 500 mg PO Q8H #30 capsule 10/13/21 Unknown Rx Ibuprofen [Motrin] 600 mg PO Q8H PRN #24 tablet 10/13/21 Unknown Rx Ondansetron [Zofran Odt] 4 mg PO Q8HR PRN #15 tab.rapdis 10/13/21 Unknown Rx Allergies Allergy/AdvReac Type Severity Reaction Status Date / Time No Known Allergies Allergy Verified 05/26/21 14:20 ED Review of Systems ROS: Stated complaint: LT SIDE OF FACE LOCKED UP Other details as noted in HPI Constitutional: denies: chills, fever Eyes: denies: eye pain, eye discharge, vision change ENT: other (left maxillary sinus pain). denies: ear pain, throat pain Respiratory: denies: cough, shortness of breath, wheezing Cardiovascular: denies: chest pain, palpitations Endocrine: no symptoms reported Gastrointestinal: denies: abdominal pain, nausea, diarrhea Genitourinary: denies: urgency, dysuria Musculoskeletal: denies: back pain, joint swelling, arthralgia Skin: denies: rash, lesions Neurological: denies: headache, weakness, paresthesias Psychiatric: denies: anxiety, depression Hematological/Lymphatic: denies: easy bleeding, easy bruising ED Past Medical Hx - Past Medical History Hx Psychiatric Treatment: Yes (Anxiety) - Social History Smoking Status: Never Smoker Substance Use Type: None (Denies illicit drug use) - Medications Home Medications: Home Medications Medication Instructions Recorded Confirmed Last Taken Type Ibuprofen [Motrin] 600 mg PO Q8H PRN #30 tablet 05/20/21 Unknown Rx Metaxalone [Skelaxin] 800 mg PO TID #9 tablet 05/20/21 Unknown Rx hydrOXYzine PAMOATE [Vistaril] 25 mg PO Q12HR PRN #30 capsule 05/20/21 Unknown Rx Albuterol Mdi (or & Nicu Only) 2 puff IH QID PRN #8.5 gram 08/14/21 Unknown Rx [ProAir HFA Inhaler] Meclizine [Antivert] 25 mg PO TID PRN #20 08/14/21 Unknown Rx Amoxicillin [Trimox CAP] 500 mg PO Q8H #30 capsule 10/13/21 Unknown Rx Ibuprofen [Motrin] 600 mg PO Q8H PRN #24 tablet 10/13/21 Unknown Rx Ondansetron [Zofran Odt] 4 mg PO Q8HR PRN #15 tab.rapdis 10/13/21 Unknown Rx ED Physical Exam - General Limitations: No Limitations General appearance: alert, in no apparent distress - Head Head exam: Present: atraumatic, normocephalic, normal inspection - Eye Eye exam: Present: normal appearance, PERRL, EOMI Pupils: Present: normal accommodation - ENT ENT exam: Present: normal orophraynx, mucous membranes moist, TM's normal bilaterally, normal external ear exam, other (Palpable left maxillary tenderness) - Neck Neck exam: Present: normal inspection, full ROM. Absent: tenderness - Respiratory Respiratory exam: Present: normal lung sounds bilaterally. Absent: respiratory distress, wheezes, rales, rhonchi, chest wall tenderness, accessory muscle use, decreased breath sounds, prolonged expiratory - Cardiovascular Cardiovascular Exam: Present: regular rate, normal rhythm, normal heart sounds. Absent: systolic murmur, diastolic murmur, rubs, gallop - GI/Abdominal GI/Abdominal exam: Present: soft, normal bowel sounds. Absent: tenderness, guarding, rebound, hyperactive bowel sounds, hypoactive bowel sounds, mass - Extremities Exam Extremities exam: Present: normal inspection, full ROM, normal capillary refill. Absent: tenderness - Back Exam Back exam: Present: normal inspection, full ROM. Absent: tenderness, CVA tenderness (R), CVA tenderness (L), muscle spasm, paraspinal tenderness, vertebral tenderness - Neurological Exam Neurological exam: Present: alert, oriented X3, CN II-XII intact, normal gait, reflexes normal - Psychiatric Psychiatric exam: Present: normal affect, normal mood, anxious - Skin Skin exam: Present: warm, dry, intact, normal color. Absent: rash ED Course Vital Signs 10/13/21 05:19 Temperature 98.4 F Pulse Rate 64 Respiratory 12 Rate Blood Pressure 117/82 [Right] O2 Sat by Pulse 100 Oximetry ED Medical Decision Making - Medical Decision Making This is a 26-year-old -[place] male with a history of anxiety presents to the ED with complaint of acute onset persistent left maxillary sinus pain with nausea and blood in the saliva for the last 2 hours. 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 Patient stated that the pain was sharp and constant and subsequently he started tasting blood in his throat and started having nausea. Patient states that the pain is since improved but is still persistent. In the ED, patient is alert and oriented x3 and is not in any distress. Patient is hemodynamically stable. Patient was discharged home on medications based on the physical exam findings of suspected left maxillary sinusitis. Patient was advised to follow-up with his primary care physician in 7 to 10 days for reevaluation. Patient was advised to return to the ED immediately if symptoms get worse. - Differential Diagnosis Sinusitis; URI; rhinitis; epistaxis; anxiety Critical care attestation.: If time is entered above; I have spent that time in minutes in the direct care of this critically ill patient, excluding procedure time. ED Disposition Clinical Impression: Left maxillary sinusitis, Nausea without vomiting Disposition: HOME / SELF CARE / HOMELESS Is pt being admited?: No Does the pt Need Aspirin: No Condition: Stable Instructions: Sinusitis, Adult, [id number], Nausea, Adult, [id number] Additional Instructions: Take medication with food, drink plenty of fluids and follow-up with your primary care physician in 7 to 10 days for reevaluation. Return to the ED immediately if symptoms get worse. Prescriptions: Ibuprofen [Motrin] 600 mg PO Q8H PRN #24 tablet PRN Reason: Pain Amoxicillin [Trimox CAP] 500 mg PO Q8H #30 capsule Ondansetron [Zofran Odt] 4 mg PO Q8HR PRN #15 tab.rapdis PRN Reason: Nausea Referrals: [facility] [Provider Group] - 3-5 Days Forms: Work/School Release Form(ED) Time of Disposition: 05:24 Print Language: STATELESS
[2021-10-13 06:44] VITALS: BP 118/56
== END 2021-10-13 17:18 | disposition home or self-care (01) ==
LOC: ED 04:51
DX: J32.0 Chronic maxillary sinusitis (principal); R11.0 Nausea; F41.9 Anxiety disorder, unspecified
CPT/HCPCS: 99282; J3490; Q0162

== ENCOUNTER 2021-10-24 00:57 | Emergency (ER) | payer SELFPAY ==
[2021-10-24 01:35] VITALS: BP 117/58
== END 2021-10-24 02:30 | disposition left against medical advice (07) ==
LOC: ED 00:57
DX: R06.02 Shortness of breath (principal); Z53.21 Procedure and treatment not carried out due to patient leaving prior to being seen by health care provider

== ENCOUNTER 2021-10-24 20:50 | Emergency (ER) | payer SELFPAY ==
--- NOTE | 2021-10-25 01:40 | XRay Report ---
CHEST 1 VIEW INDICATION / CLINICAL INFORMATION: Dyspnea. COMPARISON: Chest x-ray 08/14/2021 FINDINGS: SUPPORT DEVICES: None. HEART / MEDIASTINUM: No significant abnormality. LUNGS / PLEURA: No significant pulmonary or pleural abnormality. BONES: No significant osseous abnormality. ADDITIONAL FINDINGS: No significant additional findings. IMPRESSION: 1. No active cardiopulmonary disease. Signer Name: Aiden Neal II, MD Signed: 10/25/2021 1:36 AM Workstation Name: [id number]
--- NOTE | 2021-10-25 01:52 | Emergency Department Report ---
ED Chest Pain HPI - General Chief Complaint: Chest Pain Stated Complaint: CHEST PAIN/MOUTH PAIN Time Seen by Provider: 10/25/21 00:39 Source: EMS Mode of arrival: Stretcher Limitations: No Limitations - History of Present Illness Initial Comments: PT REPORTS THAT SOMEONE WAS CLEANING WITH TOO MUCH BLEACH AND HAS CAUSED HIM TO BE SOB, PT DENIES CP. 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 and started having chest pain no fever -: Gradual, days(s) Pain Radiation: none Severity: mild Severity scale (0 -10): 2 Quality: tightness Consistency: intermittent - Related Data Previous Rx's Medication Instructions Recorded Last Taken Type Ibuprofen [Motrin] 600 mg PO Q8H PRN #30 tablet 05/20/21 Unknown Rx Metaxalone [Skelaxin] 800 mg PO TID #9 tablet 05/20/21 Unknown Rx hydrOXYzine PAMOATE [Vistaril] 25 mg PO Q12HR PRN #30 capsule 05/20/21 Unknown Rx Albuterol Mdi (or & Nicu Only) 2 puff IH QID PRN #8.5 gram 08/14/21 Unknown Rx [ProAir HFA Inhaler] Meclizine [Antivert] 25 mg PO TID PRN #20 08/14/21 Unknown Rx Amoxicillin [Trimox CAP] 500 mg PO Q8H #30 capsule 10/13/21 Unknown Rx Ibuprofen [Motrin] 600 mg PO Q8H PRN #24 tablet 10/13/21 Unknown Rx Ondansetron [Zofran Odt] 4 mg PO Q8HR PRN #15 tab.rapdis 10/13/21 Unknown Rx Ketorolac [Toradol] 10 mg PO Q6H PRN #10 10/25/21 Unknown Rx Allergies Allergy/AdvReac Type Severity Reaction Status Date / Time No Known Allergies Allergy Verified 05/26/21 14:20 Heart Score - HEART Score History: Slightly suspicious EKG: Non-specific Age: < 45 Risk factors: No known risk factors Troponin: < normal limit HEART Score: 1 - EKG Read Time Time EKG Completed: 02:17 EKG Read Time: 02:17 - Critical Actions Critical Actions: 0-3 pts:0.9-1.7%risk of adverse cardiac event.Candidate for discharge ED Review of Systems ROS: Stated complaint: CHEST PAIN/MOUTH PAIN Other details as noted in HPI Constitutional: denies: chills, fever Eyes: denies: eye pain, eye discharge, vision change ENT: denies: ear pain, throat pain Respiratory: denies: cough, shortness of breath, wheezing Cardiovascular: denies: chest pain, palpitations Endocrine: no symptoms reported Gastrointestinal: denies: abdominal pain, nausea, diarrhea Genitourinary: denies: urgency, dysuria Musculoskeletal: denies: back pain, joint swelling, arthralgia Skin: denies: rash, lesions Neurological: denies: headache, weakness, paresthesias Psychiatric: denies: anxiety, depression Hematological/Lymphatic: denies: easy bleeding, easy bruising ED Past Medical Hx - Past Medical History Previous Medical History?: No Hx Hypertension: No Hx Psychiatric Treatment: Yes (Anxiety) - Social History Smoking Status: Current Every Day Smoker Substance Use Type: Alcohol - Medications Home Medications: Home Medications Medication Instructions Recorded Confirmed Last Taken Type Ibuprofen [Motrin] 600 mg PO Q8H PRN #30 tablet 05/20/21 Unknown Rx Metaxalone [Skelaxin] 800 mg PO TID #9 tablet 05/20/21 Unknown Rx hydrOXYzine PAMOATE [Vistaril] 25 mg PO Q12HR PRN #30 capsule 05/20/21 Unknown Rx Albuterol Mdi (or & Nicu Only) 2 puff IH QID PRN #8.5 gram 08/14/21 Unknown Rx [ProAir HFA Inhaler] Meclizine [Antivert] 25 mg PO TID PRN #20 08/14/21 Unknown Rx Amoxicillin [Trimox CAP] 500 mg PO Q8H #30 capsule 10/13/21 Unknown Rx Ibuprofen [Motrin] 600 mg PO Q8H PRN #24 tablet 10/13/21 Unknown Rx Ondansetron [Zofran Odt] 4 mg PO Q8HR PRN #15 tab.rapdis 10/13/21 Unknown Rx Ketorolac [Toradol] 10 mg PO Q6H PRN #10 10/25/21 Unknown Rx ED Physical Exam - General Limitations: No Limitations General appearance: alert, in no apparent distress - Head Head exam: Present: atraumatic, normocephalic - Eye Eye exam: Present: normal appearance - ENT ENT exam: Present: mucous membranes moist - Neck Neck exam: Present: normal inspection - Respiratory Respiratory exam: Present: normal lung sounds bilaterally. Absent: respiratory distress - Cardiovascular Cardiovascular Exam: Present: regular rate, normal rhythm. Absent: systolic murmur, diastolic murmur, rubs, gallop - GI/Abdominal GI/Abdominal exam: Present: soft, normal bowel sounds - Rectal Rectal exam: Present: deferred - Extremities Exam Extremities exam: Present: normal inspection - Back Exam Back exam: Present: normal inspection - Neurological Exam Neurological exam: Present: alert, oriented X3 - Psychiatric Psychiatric exam: Present: normal affect, normal mood - Skin Skin exam: Present: warm, dry, intact, normal color. Absent: rash ED Course Vital Signs 10/24/21 21:46 Temperature 97.8 F Pulse Rate 82 Respiratory 16 Rate Blood Pressure 121/78 O2 Sat by Pulse 99 Oximetry ED Medical Decision Making - EKG Data -: EKG Interpreted by Me EKG shows normal: sinus rhythm Rate: normal Critical care attestation.: If time is entered above; I have spent that time in minutes in the direct care of this critically ill patient, excluding procedure time. ED Disposition Clinical Impression: Chest wall pain Disposition: 01 HOME / SELF CARE / HOMELESS Is pt being admited?: No Does the pt Need Aspirin: No Condition: Stable Instructions: Nonspecific Chest Pain, Adult Prescriptions: Ketorolac [Toradol] 10 mg PO Q6H PRN #10 PRN Reason: Pain Referrals: OLIVA BOJORQUEZ MD [Primary Care Provider] - 3-5 Days
[2021-10-25 02:26] VITALS: BP 118/77
--- NOTE | 2021-10-25 10:17 | Electrocardiograph Report ---
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
== END 2021-10-25 03:36 | disposition home or self-care (01) ==
LOC: ED 20:50
DX: R07.89 Other chest pain (principal); F41.9 Anxiety disorder, unspecified; F17.200 Nicotine dependence, unspecified, uncomplicated; Z72.89 Other problems related to lifestyle; Z79.899 Other long term (current) drug therapy
CPT/HCPCS: 71045; 93005; 99283

== ENCOUNTER 2021-10-31 02:37 | Emergency (ER) | payer SELFPAY ==
[2021-10-31 02:58] VITALS: BP 123/73
--- NOTE | 2021-11-01 17:05 | Electrocardiograph Report ---
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
== END 2021-10-31 09:07 | disposition left against medical advice (07) ==
LOC: ED 02:37
DX: I82.402 Acute embolism and thrombosis of unspecified deep veins of left lower extremity (principal); Z53.21 Procedure and treatment not carried out due to patient leaving prior to being seen by health care provider
CPT/HCPCS: 93005

== ENCOUNTER 2021-11-01 10:51 | Emergency (ER) | payer SELFPAY ==
[2021-11-01] MEDS ORDERED: KETOROLAC 10 MG TAB PO ONE (14:33)
--- NOTE | 2021-11-01 15:27 | XRay Report ---
LEFT TIBIA AND FIBULA 2 VIEWS INDICATION: injury, pain. COMPARISON: None. IMPRESSION: No acute osseous or soft tissue abnormality. LEFT FEMUR 2 VIEWS INDICATION: injury, pain. COMPARISON: None. IMPRESSION: No acute osseous or soft tissue abnormality. Normal articulation at the hip and knee. Signer Name: Rick Salas Jr, MD Signed: 11/01/2021 3:23 PM Workstation Name: [id number]
--- NOTE | 2021-11-01 15:52 | Emergency Department Report ---
ED Lower Extremity HPI - General Chief Complaint: Extremity Injury, Lower Stated Complaint: X-RAY LT THIGH Time Seen by Provider: 11/01/21 14:28 Source: patient Mode of arrival: Ambulatory Limitations: No Limitations - History of Present Illness Initial Comments: 26-year-old black male with no past medical history presents to the emergency department for evaluation of left thigh and lower leg pain. 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 He states that he has had pain and swelling to the area since then. He states that pain is 9 out of 10 and worse when he ambulates. MD Complaint: thigh injury, leg injury -: Sudden, days(s) (To) Injury: Thigh: Left, Leg: Left Type of Injury: blunt Place: work Severity: severe Severity scale (0 -10): 9 Worsens With: weight bearing Associated Symptoms: swelling. denies: snap/pop sensation, numbness, tingling, ambulatory - Related Data Previous Rx's Medication Instructions Recorded Last Taken Type Ibuprofen [Motrin] 600 mg PO Q8H PRN #30 tablet 05/20/21 Unknown Rx Metaxalone [Skelaxin] 800 mg PO TID #9 tablet 05/20/21 Unknown Rx hydrOXYzine PAMOATE [Vistaril] 25 mg PO Q12HR PRN #30 capsule 05/20/21 Unknown Rx Albuterol Mdi (or & Nicu Only) 2 puff IH QID PRN #8.5 gram 08/14/21 Unknown Rx [ProAir HFA Inhaler] Meclizine [Antivert] 25 mg PO TID PRN #20 08/14/21 Unknown Rx Amoxicillin [Trimox CAP] 500 mg PO Q8H #30 capsule 10/13/21 Unknown Rx Ibuprofen [Motrin] 600 mg PO Q8H PRN #24 tablet 10/13/21 Unknown Rx Ondansetron [Zofran Odt] 4 mg PO Q8HR PRN #15 tab.rapdis 10/13/21 Unknown Rx Ketorolac [Toradol] 10 mg PO Q6H PRN #10 10/25/21 Unknown Rx Naproxen [Naprosyn] 500 mg PO BID #14 tab 11/01/21 Unknown Rx Allergies Allergy/AdvReac Type Severity Reaction Status Date / Time No Known Allergies Allergy Verified 10/31/21 03:00 ED Review of Systems ROS: Stated complaint: X-RAY LT THIGH Other details as noted in HPI Comment: All other systems reviewed and negative Constitutional: denies: chills, fever Respiratory: denies: shortness of breath, SOB with exertion, SOB at rest Cardiovascular: denies: chest pain Gastrointestinal: denies: abdominal pain, nausea, vomiting Genitourinary: denies: urgency, dysuria, frequency Musculoskeletal: denies: back pain Skin: denies: rash, lesions Neurological: denies: headache, weakness ED Past Medical Hx - Past Medical History Hx Hypertension: No Hx Psychiatric Treatment: Yes (Anxiety) - Social History Smoking Status: Never Smoker Substance Use Type: None - Medications Home Medications: Home Medications Medication Instructions Recorded Confirmed Last Taken Type Ibuprofen [Motrin] 600 mg PO Q8H PRN #30 tablet 05/20/21 Unknown Rx Metaxalone [Skelaxin] 800 mg PO TID #9 tablet 05/20/21 Unknown Rx hydrOXYzine PAMOATE [Vistaril] 25 mg PO Q12HR PRN #30 capsule 05/20/21 Unknown Rx Albuterol Mdi (or & Nicu Only) 2 puff IH QID PRN #8.5 gram 08/14/21 Unknown Rx [ProAir HFA Inhaler] Meclizine [Antivert] 25 mg PO TID PRN #20 08/14/21 Unknown Rx Amoxicillin [Trimox CAP] 500 mg PO Q8H #30 capsule 10/13/21 Unknown Rx Ibuprofen [Motrin] 600 mg PO Q8H PRN #24 tablet 10/13/21 Unknown Rx Ondansetron [Zofran Odt] 4 mg PO Q8HR PRN #15 tab.rapdis 10/13/21 Unknown Rx Ketorolac [Toradol] 10 mg PO Q6H PRN #10 10/25/21 Unknown Rx Naproxen [Naprosyn] 500 mg PO BID #14 tab 11/01/21 Unknown Rx ED Physical Exam - General Limitations: No Limitations General appearance: alert, in no apparent distress - Head Head exam: Present: atraumatic, normocephalic - Eye Eye exam: Present: normal appearance. Absent: conjunctival injection - Neck Neck exam: Present: normal inspection. Absent: tenderness - Respiratory Respiratory exam: Absent: respiratory distress - Cardiovascular Cardiovascular Exam: Present: regular rate - GI/Abdominal GI/Abdominal exam: Absent: distended, tenderness - Expanded Lower Extremity Exam Left Upper Leg exam: Present: normal inspection, tenderness. Absent: swelling, abrasion, ecchymosis, erythema Knee exam: Present: normal inspection Lower Leg exam: Present: normal inspection, full ROM, tenderness. Absent: s welling, abrasion, deformity, dislocation, erythema, Nate's sign Neuro vascular tendon exam: Present: no vascular compromise. Absent: pulse deficit, abnormal cap refill, motor deficit, sensory deficit, tendon deficit, extremity cold to touch, pallor Gait: Positive: observed and normal - Back Exam Back exam: Present: normal inspection. Absent: CVA tenderness (R), CVA tenderness (L) - Neurological Exam Neurological exam: Present: alert, oriented X3 - Psychiatric Psychiatric exam: Present: normal affect, normal mood - Skin Skin exam: Present: warm, dry, intact, normal color ED Course Vital Signs 11/01/21 11/01/21 11:52 16:12 Temperature 96.0 F L Pulse Rate 71 78 Respiratory 18 15 Rate Blood Pressure 116/65 Blood Pressure 151/89 [Right] O2 Sat by Pulse 100 99 Oximetry ED Lower Extremity MDM - Radiology Data Radiology results: report reviewed, image reviewed Left tib-fib x-ray: IMPRESSION: No acute osseous or soft tissue abnormality. Left femur x-ray: IMPRESSION: No acute osseous or soft tissue abnormality. Normal articulation at the hip and knee. - Medical Decision Making 26-year-old black male with no past medical history presents to the emergency department for evaluation of left thigh and lower leg pain. 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 He states that he has had pain and swelling to the area since then. He states that pain is 9 out of 10 and worse when he ambulates. Left thigh and tib-fib x-ray without any acute abnormalities noted. Patient will be treated with anti-inflammatories. He is advised to take medications as prescribed and follow-up with primary care provider or orthopedics if no improvement or worsening symptoms. He is advised to return to the emergency department as needed. He verbalized understanding of and agreement with plan of care. Critical care attestation.: If time is entered above; I have spent that time in minutes in the direct care of this critically ill patient, excluding procedure time. ED Disposition Clinical Impression: Left leg pain Disposition: 01 HOME / SELF CARE / HOMELESS Is pt being admited?: No Does the pt Need Aspirin: No Condition: Stable Instructions: How to Use Cold Therapy, [id number], Musculoskeletal Pain Additional Instructions: Take medications as prescribed. Follow up with primary care provider if no improvement or worsening symptoms. Return to ED as needed. Prescriptions: Naproxen [Naprosyn] 500 mg PO BID #14 tab Referrals: OLIVA BOJORQUEZ MD [Primary Care Provider] - 3-5 Days IMAN BOYD MD [Staff Physician] - 3-5 Days Time of Disposition: 15:51
[2021-11-01 16:13] VITALS: BP 151/89
== END 2021-11-01 16:13 | disposition home or self-care (01) ==
LOC: ED 10:51
DX: M79.605 Pain in left leg (principal)
CPT/HCPCS: 99283